=== PATIENT | male | born 1970 | race American Indian/Alaskan Native ===

== ENCOUNTER 2017-05-27 15:28 | Inpatient (IN) | payer OTHER ==
[2017-05-27 15:58] LABS: Basophils % (Auto) 0.5 % (0.0-1.8); Eosinophils % (Auto) 0.1 % (0.0-4.3); Hematocrit 43.1 % (35.5-45.6); Hemoglobin 13.5 gm/dl (11.8-15.2); Mean Corpuscular HGB Conc 32 % (32-34); Mean Corpuscular Hemoglobin 27 pg (28-32); Mean Corpuscular Volume 85 fl (84-94); Platelet Count 440 K/mm3 (140-440); Red Blood Count 5.04 M/mm3 (3.65-5.03); Red Cell Distribution Width 13.3 % (13.2-15.2); White Blood Count 15.3 K/mm3 (4.5-11.0)
[2017-05-27 16:15] LABS: Alanine Aminotransferase 22 units/L (7-56); Albumin 4.3 g/dL (3.9-5); Albumin/Globulin Ratio 1.1 %; Alkaline Phosphatase 98 units/L (35-129); Anion Gap 19 mmol/L; BUN/Creatinine Ratio 10; Blood Urea Nitrogen 10 mg/dL (9-20); Calcium 9.5 mg/dL (8.4-10.2); Carbon Dioxide 24 mmol/L (22-30); Chloride 99.4 mmol/L (98-107); Glucose 106 mg/dL (75-100); Lipase 19 units/L (13-60); Potassium 4.2 mmol/L (3.6-5.0); Sodium 138 mmol/L (137-145); Total Protein 8.2 g/dL (6.3-8.2)
[2017-05-27 17:16] LABS: Bilirubin,Urine NEG (Negative); Blood,Urine NEG (Negative); Ketones,Urine NEG (Negative); Leukocyte Esterase,Urine NEG (Negative); Mucus,Urine FEW /HPF; Nitrite,Urine NEG (Negative); Protein,Urine <15 mg/dL mg/dL (Negative); Urobilinogen,Urine < 2.0 mg/dL (<2.0)
--- NOTE | 2017-05-27 20:34 | Emergency Department Report ---
HPI - General Chief Complaint: Abdominal Pain Time Seen by Provider: 05/27/17 20:33 - HPI HPI: This is a 47-year-old male who presents to the emergency department with mid to lower abdominal pain has been going on since this morning. It is associated with nausea and vomiting the patient says he is unable to even keep liquids down. He took some Pepto-Bismol for his symptoms without much relief. He denies any fever, problems with bowel or bladder, back pain, dysuria. He denies any past medical history. He does not have a primary care physician. No recent travel or sick contacts at home. ED Past Medical Hx - Past Medical History Previous Medical History?: No - Surgical History Past Surgical History?: No - Social History Smoking Status: Never Smoker Substance Use Type: None - Medications Home Medications: Home Medications Medication Instructions Recorded Confirmed Last Taken Type No Known Home Medications [No 05/27/17 05/27/17 Unknown History Reported Home Medications] ED Review of Systems ROS: Stated complaint: ABDOMINAL PAIN Other details as noted in HPI Comment: All other systems reviewed and negative Constitutional: denies: chills, fever Eyes: denies: eye pain, eye discharge, vision change ENT: denies: ear pain, throat pain Respiratory: denies: cough, shortness of breath, wheezing Cardiovascular: denies: chest pain, palpitations Gastrointestinal: abdominal pain, nausea, vomiting. denies: diarrhea Genitourinary: denies: urgency, dysuria Musculoskeletal: denies: back pain, joint swelling, arthralgia Skin: denies: rash, lesions Neurological: denies: headache, weakness, paresthesias Physical Exam - Physical Exam Vital Signs: Vital Signs 05/27/17 05/27/17 15:32 20:07 Temperature 99.1 F 98.2 F Pulse Rate 99 H 97 H Respiratory 18 18 Rate Blood Pressure 151/92 Blood Pressure 165/82 [Left] O2 Sat by Pulse 98 100 Oximetry Physical Exam: GENERAL: The patient is well-developed well-nourished. HENT: Normocephalic. Atraumatic. Patient has moist mucous membranes. EYES: Extraocular motions are intact. Pupils equal reactive to light bilaterally. NECK: Supple. Trachea is midline. CHEST/LUNGS: Clear to auscultation. There is no respiratory distress noted. HEART/CARDIOVASCULAR: Regular. There is no tachycardia. There is no murmur. ABDOMEN: Abdomen is soft. There is some tenderness palpation to the majority of the abdomen except for the right upper quadrant. No guarding or rebound tenderness. Patient has normal bowel sounds. There is no abdominal distention. SKIN: Skin is warm and dry. NEURO: The patient is awake, alert, and oriented. The patient is cooperative. The patient has no focal neurologic deficits. The patient has normal speech. MUSCULOSKELETAL: There is no tenderness or deformity. There is no limitation range of motion. There is no evidence of acute injury. ED Course Vital Signs 05/27/17 05/27/17 15:32 20:07 Temperature 99.1 F 98.2 F Pulse Rate 99 H 97 H Respiratory 18 18 Rate Blood Pressure 151/92 Blood Pressure 165/82 [Left] O2 Sat by Pulse 98 100 Oximetry - Consultations Consultation #1: 05/27/17 23:51 I spoke with the general surgeon [employer] support association, Dr Banerjee, listen to the presentation and the CT scan results showing the 4 small masses within the abdomen and he recommends admission to the hospitalist service and he will consult on the floor. ED Medical Decision Making - Lab Data Result diagrams: 05/27/17 15:41 05/27/17 15:41 - Radiology Data Radiology results: report reviewed PROCEDURE: CT abdomen and pelvis with contrast. TECHNIQUE: Computerized axial tomography of the abdomen and pelvis was performed after the IV injection of iodinated nonionic contrast. HISTORY: Abdominal pain. COMPARISON: No prior studies are available for comparison. FINDINGS: The lung bases are clear. There are no pleural effusions. The heart size is normal. The liver, spleen and pancreas appear normal. The gallbladder is present. The adrenal glands are not enlarged. Both kidneys appear normal in size and configuration. There is a small right renal cyst. The abdominal aorta has a normal caliber. There is no retroperitoneal adenopathy. The gastrointestinal tract is unremarkable. There are no signs of intestinal obstruction. A normal appendix is visible. There are 4 rounded masses located within the mesenteric fat of the right mid abdomen. These are located between the inferior vena cava and the ascending portion of the colon. They do not appear to be contiguous with any bowel loops. The 4 masses are clustered in one area. All of the masses appear to be solid. The largest mass is slightly lobulated and measures 4.4 centimeters x 3.6 centimeters in cross-section. The smallest mass measures approximately 2.0 centimeters x 1.6 centimeters in cross-section. The margins of the masses are sharply defined. The etiology is uncertain. This could represent lymphoma. A lower grade sarcoma is possible. Metastases to the mesentery are possible. A CT-guided biopsy may be possible. Referral to a general surgeon should be considered. The bladder, seminal vesicles and prostate appear normal. The regional skeleton appears intact. IMPRESSION: Unusual solid masses within the right-sided mesenteric fat as discussed above. Tiny right renal cyst. Transcribed By: MRM Dictated By: INDIA BARRETT MD Electronically Authenticated By: INDIA BARRETT MD Signed Date/Time: 05/27/171935 - Medical Decision Making Patient presents with abdominal pain, nausea and vomiting. Labs are mostly unremarkable except for a leukocytosis of 15,000. Normal belly labs. CT of the abdomen and pelvis was done that shows 4 right-sided mesenteric masses between 4 and 2 cm that could be lymphoma versus sarcoma versus metastasis. Spoke with general surgery who recommended admission where he will consult. Patient was given IV fluid, pain medication and antiemetics. He has been accepted for admission by the hospitalist, Dr Cervantes. - Differential Diagnosis Appendicitis, Malignancy, Diverticulitis, Pancreatitis Critical Care Time: No Critical care attestation.: If time is entered above; I have spent that time in minutes in the direct care of this critically ill patient, excluding procedure time. ED Disposition Clinical Impression: Mesenteric mass Abdominal pain Qualifiers: Abdominal location: generalized Qualified Code(s): R10.84 - Generalized abdominal pain Nausea and vomiting Qualifiers: Vomiting type: unspecified Vomiting Intractability: non-intractable Qualified Code(s): R11.2 - Nausea with vomiting, unspecified Abdominal mass Qualifiers: Abdominal location: unspecified location Qualified Code(s): R19.00 - Intra- abdominal and pelvic swelling, mass and lump, unspecified site Disposition: OP ADMIT IP TO THIS HOSP Is pt being admited?: Yes Condition: Stable Referrals: PRIMARY CARE, [Primary Care Provider] - 3-5 Days Time of Disposition: 00:09
[2017-05-27] MEDS ORDERED: MORPHINE IV ONE (21:41)
[2017-05-27] MEDS ORDERED: ZOFRAN IV ONE (21:41)
[2017-05-27] MEDS ORDERED: NACL ONE (21:47)
--- NOTE | 2017-05-27 23:39 | Cat Scan Report ---
FINAL REPORT PROCEDURE: CT abdomen and pelvis with contrast. TECHNIQUE: Computerized axial tomography of the abdomen and pelvis was performed after the IV injection of iodinated nonionic contrast. HISTORY: Abdominal pain. COMPARISON: No prior studies are available for comparison. FINDINGS: The lung bases are clear. There are no pleural effusions. The heart size is normal. The liver, spleen and pancreas appear normal. The gallbladder is present. The adrenal glands are not enlarged. Both kidneys appear normal in size and configuration. There is a small right renal cyst. The abdominal aorta has a normal caliber. There is no retroperitoneal adenopathy. The gastrointestinal tract is unremarkable. There are no signs of intestinal obstruction. A normal appendix is visible. There are 4 rounded masses located within the mesenteric fat of the right mid abdomen. These are located between the inferior vena cava and the ascending portion of the colon. They do not appear to be contiguous with any bowel loops. The 4 masses are clustered in one area. All of the masses appear to be solid. The largest mass is slightly lobulated and measures 4.4 centimeters x 3.6 centimeters in cross-section. The smallest mass measures approximately 2.0 centimeters x 1.6 centimeters in cross-section. The margins of the masses are sharply defined. The etiology is uncertain. This could represent lymphoma. A lower grade sarcoma is possible. Metastases to the mesentery are possible. A CT-guided biopsy may be possible. Referral to a general surgeon should be considered. The bladder, seminal vesicles and prostate appear normal. The regional skeleton appears intact. IMPRESSION: Unusual solid masses within the right-sided mesenteric fat as discussed above. Tiny right renal cyst.
[2017-05-27] MEDS ORDERED: NACL 0.9% 1000 ML 1,000 ML IV ONE (23:42)
[2017-05-28] MEDS ORDERED: TYLENOL PO PRN (00:38)
[2017-05-28] MEDS ORDERED: MILK OF MAGNESIA PO PRN (00:38)
[2017-05-28] MEDS ORDERED: ZOFRAN IV PRN (00:38)
[2017-05-28] MEDS ORDERED: DULCOLAX PR PRN (00:38)
--- NOTE | 2017-05-28 00:38 | History and Physical Report ---
History of Present Illness Date of examination: 05/28/17 Date of admission: 05/28/17 Chief complaint: abd pain History of present illness: This is a 47-year-old male with no significant past medical history who presents to the emergency department with complaints of abdominal pain and persistent nausea and vomiting. He is unable to even keep liquids down. He took some Pepto-Bismol for his symptoms without much relief. He denies any fever, problems with bowel or bladder, back pain or dysuria. Patient states that his vomitus is of gastric contents. He denies any hematemesis. No chills. No cough, cold like symptoms. Patient states that his pain has been relieved with morphine given in the ER. Past History Past Medical History: No medical history Past Surgical History: No surgical history Social history: no significant social history Family history: cancer (father prostate), hypertension (mother) Medications and Allergies Allergies Allergy/AdvReac Type Severity Reaction Status Date / Time No Known Allergies Allergy Unverified 05/27/17 15:29 Home Medications Medication Instructions Recorded Confirmed Last Taken Type No Known Home Medications [No 05/27/17 05/27/17 Unknown History Reported Home Medications] Active Meds: Active Medications Sodium Chloride (Nacl 0.9% 1000 Ml) 1,000 mls @ 999 mls/hr IV BOLUS ONE Stop: 05/28/17 00:42 Last Admin: 05/27/17 23:51 Dose: 999 mls/hr Review of Systems All systems: negative Exam - Constitutional Vitals: Temp Pulse Resp BP Pulse Ox 98.2 F 108 H 23 139/82 98 05/27/17 20:07 05/27/17 23:00 05/27/17 23:00 05/27/17 23:00 05/27/17 23:00 General appearance: Present: no acute distress, well-nourished - EENT Eyes: Present: PERRL ENT: hearing intact, clear oral mucosa - Neck Neck: Present: supple, normal ROM - Respiratory Respiratory effort: normal Respiratory: bilateral: CTA - Cardiovascular Heart Sounds: Present: S1 & S2. Absent: rub, click - Extremities Extremities: pulses symmetrical, No edema Peripheral Pulses: within normal limits - Abdominal General gastrointestinal: Present: soft, non-tender, non-distended, normal bowel sounds Male genitourinary: Present: normal - Integumentary Integumentary: Present: clear, warm, dry - Musculoskeletal Musculoskeletal: gait normal, strength equal bilaterally - Psychiatric Psychiatric: appropriate mood/affect, intact judgment & insight - Neurologic Neurologic: CNII-XII intact, moves all extremities Results - Labs CBC & Chem 7: 05/27/17 15:41 05/27/17 15:41 Labs: Laboratory Last Values WBC 15.3 K/mm3 (4.5-11.0) H 05/27/17 15:41 RBC 5.04 M/mm3 (3.65-5.03) H 05/27/17 15:41 Hgb 13.5 gm/dl (11.8-15.2) 05/27/17 15:41 Hct 43.1 % (35.5-45.6) 05/27/17 15:41 MCV 85 fl (84-94) 05/27/17 15:41 MCH 27 pg (28-32) L 05/27/17 15:41 MCHC 32 % (32-34) 05/27/17 15:41 RDW 13.3 % (13.2-15.2) 05/27/17 15:41 Plt Count 440 K/mm3 (140-440) 05/27/17 15:41 Lymph % (Auto) 14.8 % (13.4-35.0) 05/27/17 15:41 [place] % (Auto) 2.3 % (0.0-7.3) 05/27/17 15:41 Eos % (Auto) 0.1 % (0.0-4.3) 05/27/17 15:41 Baso % (Auto) 0.5 % (0.0-1.8) 05/27/17 15:41 Lymph # 2.3 K/mm3 (1.2-5.4) 05/27/17 15:41 [place] # 0.3 K/mm3 (0.0-0.8) 05/27/17 15:41 Eos # 0.0 K/mm3 (0.0-0.4) 05/27/17 15:41 Baso # 0.1 K/mm3 (0.0-0.1) 05/27/17 15:41 Seg Neutrophils % 82.3 % (40.0-70.0) H 05/27/17 15:41 Seg Neutrophils # 12.6 K/mm3 (1.8-7.7) H 05/27/17 15:41 Sodium 138 mmol/L (137-145) 05/27/17 15:41 Potassium 4.2 mmol/L (3.6-5.0) 05/27/17 15:41 Chloride 99.4 mmol/L (98-107) 05/27/17 15:41 Carbon Dioxide 24 mmol/L (22-30) 05/27/17 15:41 Anion Gap 19 mmol/L 05/27/17 15:41 BUN 10 mg/dL (9-20) 05/27/17 15:41 Creatinine 1.0 mg/dL (0.8-1.5) 05/27/17 15:41 Estimated GFR > 60 ml/min 05/27/17 15:41 BUN/Creatinine Ratio 10 % 05/27/17 15:41 Glucose 106 mg/dL (75-100) H 05/27/17 15:41 Calcium 9.5 mg/dL (8.4-10.2) 05/27/17 15:41 Total Bilirubin 0.30 mg/dL (0.1-1.2) 05/27/17 15:41 AST 15 units/L (5-40) 05/27/17 15:41 ALT 22 units/L (7-56) 05/27/17 15:41 Alkaline Phosphatase 98 units/L (35-129) 05/27/17 15:41 Total Protein 8.2 g/dL (6.3-8.2) 05/27/17 15:41 Albumin 4.3 g/dL (3.9-5) 05/27/17 15:41 Albumin/Globulin Ratio 1.1 % 05/27/17 15:41 Lipase 19 units/L (13-60) 05/27/17 15:41 Urine Color Yellow (Yellow) 05/27/17 15:38 Urine Turbidity Clear (Clear) 05/27/17 15:38 Urine pH 8.0 (5.0-7.0) H 05/27/17 15:38 Ur Specific [place] 1.021 (1.003-1.030) 05/27/17 15:38 Urine Protein <15 mg/dl mg/dL (Negative) 05/27/17 15:38 Urine Glucose (UA) Neg mg/dL (Negative) 05/27/17 15:38 Urine Ketones Neg mg/dL (Negative) 05/27/17 15:38 Urine Blood Neg (Negative) 05/27/17 15:38 Urine Nitrite Neg (Negative) 05/27/17 15:38 Urine Bilirubin Neg (Negative) 05/27/17 15:38 Urine Urobilinogen < 2.0 mg/dL (<2.0) 05/27/17 15:38 Ur Leukocyte Esterase Neg (Negative) 05/27/17 15:38 Urine WBC (Auto) 1.0 /HPF (0.0-6.0) 05/27/17 15:38 Urine RBC (Auto) 2.0 /HPF (0.0-6.0) 05/27/17 15:38 Urine Mucus Few /HPF 05/27/17 15:38 Assessment and Plan Assessment and plan: Abdominal pain/mesenteric mass. CT of the abdomen and pelvis was done that shows 4 right-sided mesenteric masses between 4 and 2 cm that could be lymphoma versus sarcoma versus metastasis. General surgery has been consulted and will follow up in the morning. Persistent nausea and vomiting. Continue supportive care with IV fluid hydration and antiemetics. DVT prophylaxis.
[2017-05-28] MEDS: MORPHINE IV PRN ×3 (02:21→23:45)
[2017-05-28] MEDS: NACL 0.9% 1000 ML 1,000 ML IV SCH ×2 (02:22→14:38)
[2017-05-28] MEDS: PEPCID IV SCH ×2 (09:41→21:52)
[2017-05-28] MEDS: LOVENOX SUB-Q SCH (09:41)
[2017-05-28 10:00] LABS: Basophils % (Auto) 0.5 % (0.0-1.8); Eosinophils % (Auto) 0.2 % (0.0-4.3); Hematocrit 40.1 % (35.5-45.6); Hemoglobin 12.8 gm/dl (11.8-15.2); Mean Corpuscular HGB Conc 32 % (32-34); Mean Corpuscular Hemoglobin 27 pg (28-32); Mean Corpuscular Volume 85 fl (84-94); Platelet Count 391 K/mm3 (140-440); Red Blood Count 4.74 M/mm3 (3.65-5.03); Red Cell Distribution Width 13.1 % (13.2-15.2); White Blood Count 15.6 K/mm3 (4.5-11.0)
--- NOTE | 2017-05-28 11:42 | Progress Note ---
Assessment and Plan Full consult dictated. Healthy 47 y/o male c/o abd pain, N&V for around 2 wks. "feeling better now". also hx of constipation. Abd soft, mild epig tenderness. CT - enlarged (approx 5cm) mesenteric LN. r/o lymphoma. also questionable rectal mass imp - as above keep npo IR eval possible CT guided LN biopsy also GI eval for colonoscopy will follow. Chief complaint: abd pain History of present illness: This is a 47-year-old male with no significant past medical history who presents to the emergency department with complaints of abdominal pain and persistent nausea and vomiting. He is unable to even keep liquids down. He took some Pepto-Bismol for his symptoms without much relief. He denies any fever, problems with bowel or bladder, back pain or dysuria. Patient states that his vomitus is of gastric contents. He denies any hematemesis. No chills. No cough, cold like symptoms. Patient states that his pain has been relieved with morphine given in the ER. Past History Past Medical History: No medical history Past Surgical History: No surgical history Social history: no significant social history Family history: cancer (father prostate), hypertension (mother) Selected Entries 05/28/17 08:00 Temperature 97.0 F L Pulse Rate 98 H Respiratory 20 Rate Blood Pressure 146/87 Laboratory Tests 05/27/17 05/28/17 15:41 09:39 WBC 15.6 H Hgb 12.8 Hct 40.1 Sodium 138 Potassium 4.2 Chloride 99.4 Carbon Dioxide 24 Anion Gap 19 BUN 10 Creatinine 1.0 Total Bilirubin 0.30 AST 15 ALT 22 Alkaline Phosphatase 98 Lipase 19 Objective Vital Signs - 12hr 05/27/17 05/28/17 05/28/17 23:53 00:00 00:11 Temperature Pulse Rate 104 H 112 H 107 H Respiratory 19 19 13 Rate Blood Pressure 139/82 146/96 146/96 Blood Pressure [Left] O2 Sat by Pulse 98 100 99 Oximetry 05/28/17 05/28/17 05/28/17 00:21 00:31 00:41 Temperature Pulse Rate 111 H 108 H 105 H Respiratory 19 18 22 Rate Blood Pressure 146/96 146/96 146/96 Blood Pressure [Left] O2 Sat by Pulse 98 97 96 Oximetry 05/28/17 05/28/17 05/28/17 00:51 01:00 01:11 Temperature Pulse Rate 109 H 105 H 109 H Respiratory 21 21 21 Rate Blood Pressure 146/96 155/80 155/80 Blood Pressure [Left] O2 Sat by Pulse 97 100 97 Oximetry 05/28/17 05/28/17 05/28/17 01:12 01:41 02:21 Temperature 98.8 F 98.5 F Pulse Rate 114 H 107 H Respiratory 20 20 24 Rate Blood Pressure 151/82 Blood Pressure 155/80 [Left] O2 Sat by Pulse 98 100 Oximetry 05/28/17 05/28/17 03:19 08:00 Temperature 97.0 F L Pulse Rate 98 H Respiratory 20 20 Rate Blood Pressure 146/87 Blood Pressure [Left] O2 Sat by Pulse 98 Oximetry - Labs 05/28/17 09:39 05/27/17 15:41 Diabetes panel 05/27/17 Range/Units 15:41 Sodium 138 (137-145) mmol/L Potassium 4.2 (3.6-5.0) mmol/L Chloride 99.4 (98-107) mmol/L Carbon Dioxide 24 (22-30) mmol/L BUN 10 (9-20) mg/dL Creatinine 1.0 (0.8-1.5) mg/dL Glucose 106 H (75-100) mg/dL Calcium 9.5 (8.4-10.2) mg/dL AST 15 (5-40) units/L ALT 22 (7-56) units/L Alkaline Phosphatase 98 (35-129) units/L Total Protein 8.2 (6.3-8.2) g/dL Albumin 4.3 (3.9-5) g/dL Calcium panel 05/27/17 Range/Units 15:41 Calcium 9.5 (8.4-10.2) mg/dL Albumin 4.3 (3.9-5) g/dL Pituitary panel 05/27/17 Range/Units 15:41 Sodium 138 (137-145) mmol/L Potassium 4.2 (3.6-5.0) mmol/L Chloride 99.4 (98-107) mmol/L Carbon Dioxide 24 (22-30) mmol/L BUN 10 (9-20) mg/dL Creatinine 1.0 (0.8-1.5) mg/dL Glucose 106 H (75-100) mg/dL Calcium 9.5 (8.4-10.2) mg/dL Adrenal panel 05/27/ Range/Units 15:41 Sodium 138 (137-145) mmol/L Potassium 4.2 (3.6-5.0) mmol/L Chloride 99.4 (98-107) mmol/L Carbon Dioxide 24 (22-30) mmol/L BUN 10 (9-20) mg/dL Creatinine 1.0 (0.8-1.5) mg/dL Glucose 106 H (75-100) mg/dL Calcium 9.5 (8.4-10.2) mg/dL Total Bilirubin 0.30 (0.1-1.2) mg/dL AST 15 (5-40) units/L ALT 22 (7-56) units/L Alkaline Phosphatase 98 (35-129) units/L Total Protein 8.2 (6.3-8.2) g/dL Albumin 4.3 (3.9-5) g/dL
--- NOTE | 2017-05-28 15:24 | Gastroenterology Consultation ---
History of Present Illness - Reason for Consult Consult date: 05/28/17 rule out colo-rectal mass Requesting physician: YESY WHITE - History of Present Illness Mr Mejia is a 47 yo aam with no significant past medical history who presents with abdominal pain. patient reports having changes in GI symptoms starting ~6- 8 weeks ago. he initially was having sporadic abdominal pain (mid/right sided) which were self-limiting without obvious triggers or alleviating factors. The pain became more frequent and severe which led to ED arrival yesterday. He has had poor po intake over the last few weeks with episodes of abd pain and occasional n/v following po intake. He also reports bowel habit changes ( constipation) since abd pain started. Denies overt gi bleeding or obvious weight loss. CT scan findings reviewed which shows solid masses in right mesentery of unclear etiology. + night sweats/chills. No known family h/o colon cancer. Past History Past Medical History: No medical history Past Surgical History: No surgical history Social history: no significant social history Family history: cancer (father prostate), hypertension (mother) Medications and Allergies Allergies Allergy/AdvReac Type Severity Reaction Status Date / Time No Known Allergies Allergy Unverified 05/27/17 15:29 Home Medications Medication Instructions Recorded Confirmed Last Taken Type No Known Home Medications [No 05/27/17 05/27/17 Unknown History Reported Home Medications] Active Meds: Active Medications Acetaminophen (Tylenol) 650 mg PO Q4H PRN PRN Reason: Pain MILD(1-3)/Fever >100.5/LADD Bisacodyl (Dulcolax) 10 mg NM QDAY PRN PRN Reason: Constipation unrelieved by MOM Bisacodyl (Dulcolax) 15 mg PO ONCE ONE Stop: 05/28/17 16:01 Enoxaparin Sodium (Lovenox) 40 mg SUB-Q QDAY [facility] Last Admin: 05/28/17 09:41 Dose: 40 mg Famotidine (Pepcid) 20 mg IV BID [facility] Last Admin: 05/28/17 09:41 Dose: 20 mg Sodium Chloride (Nacl 0.9% 1000 Ml) 1,000 mls @ 75 mls/hr IV DIRECT [facility] Last Admin: 05/28/17 14:38 Dose: 75 mls/hr Magnesium Hydroxide (Milk Of Magnesia) 30 ml PO Q4H PRN PRN Reason: Constipation Morphine Sulfate (Morphine) 2 mg IV Q4H PRN PRN Reason: Pain, Moderate (4-6) Last Admin: 05/28/17 12:44 Dose: 2 mg Ondansetron HCl (Zofran) 4 mg IV Q8H PRN PRN Reason: N/V unrelieved by Reglan Polyethylene Glycol/Electrolytes (Golytely) 4,000 ml PO ONCE ONE Stop: 05/28/17 17:01 Review of Systems - Review of Systems All systems: negative (per hpi) Exam - Constitutional Vital Signs: Temp Pulse Resp BP Pulse Ox 97.0 F L 98 H 20 146/87 98 05/28/17 08:00 05/28/17 08:00 05/28/17 13:14 05/28/17 08:00 05/28/17 08:00 General appearance: no acute distress - EENT Eyes: PERRL, EOM intact ENT: clear oral mucosa - Neck Neck: supple, normal ROM - Respiratory Respiratory effort: normal Respiratory: bilateral: CTA - Cardiovascular Rhythm: regular Heart Sounds: Present: S1 & S2 Extremities: No edema - Gastrointestinal General gastrointestinal: Present: soft, non-distended, normal bowel sounds - Integumentary Integumentary: Present: warm, dry - Neurologic Neurological: alert and oriented x3 - Psychiatric Psychiatric: appropriate mood/affect - Labs CBC & Chem 7: 05/28/17 09:39 05/27/17 15:41 Lab Results: Laboratory Results - last 24 hr 05/27/17 05/27/17 05/27/17 15:38 15:41 15:41 WBC 15.3 H RBC 5.04 H Hgb 13.5 Hct 43.1 MCV 85 MCH 27 L MCHC 32 RDW 13.3 Plt Count 440 Lymph % (Auto) 14.8 [place] % (Auto) 2.3 Eos % (Auto) 0.1 Baso % (Auto) 0.5 Lymph # 2.3 [place] # 0.3 Eos # 0.0 Baso # 0.1 Seg Neutrophils % 82.3 H Seg Neutrophils # 12.6 H Sodium 138 Potassium 4.2 Chloride 99.4 Carbon Dioxide 24 Anion Gap 19 BUN 10 Creatinine 1.0 Estimated GFR > 60 BUN/Creatinine Ratio 10 Glucose 106 H Calcium 9.5 Total Bilirubin 0.30 AST 15 ALT 22 Alkaline Phosphatase 98 Total Protein 8.2 Albumin 4.3 Albumin/Globulin Ratio 1.1 Lipase 19 Urine Color Yellow Urine Turbidity Clear Urine pH 8.0 H Ur Specific [place] 1.021 Urine Protein <15 mg/dl Urine Glucose (UA) Neg Urine Ketones Neg Urine Blood Neg Urine Nitrite Neg Urine Bilirubin Neg Urine Urobilinogen < 2.0 Ur Leukocyte Esterase Neg Urine WBC (Auto) 1.0 Urine RBC (Auto) 2.0 Urine Mucus Few 05/28/17 09:39 WBC 15.6 H RBC 4.74 Hgb 12.8 Hct 40.1 MCV 85 MCH 27 L MCHC 32 RDW 13.1 L Plt Count 391 Lymph % (Auto) 16.6 [place] % (Auto) 7.7 H Eos % (Auto) 0.2 Baso % (Auto) 0.5 Lymph # 2.6 [place] # 1.2 H Eos # 0.0 Baso # 0.1 Seg Neutrophils % 75.0 H Seg Neutrophils # 11.7 H Sodium Potassium Chloride Carbon Dioxide Anion Gap BUN Creatinine Estimated GFR BUN/Creatinine Ratio Glucose Calcium Total Bilirubin AST ALT Alkaline Phosphatase Total Protein Albumin Albumin/Globulin Ratio Lipase Urine Color Urine Turbidity Urine pH Ur Specific [place] Urine Protein Urine Glucose (UA) Urine Ketones Urine Blood Urine Nitrite Urine Bilirubin Urine Urobilinogen Ur Leukocyte Esterase Urine WBC (Auto) Urine RBC (Auto) Urine Mucus - Imaging CT Scan: report reviewed Assessment and Plan 1. Mesentery masses of unclear etiology 2. Abdominal pain/change in bowel habits 3. Intractable nausea/vomiting -presentation and imaging concerning for possible underlying neoplasm. he has had bowel habit changes since initiation of abd pain/symptoms. surgery following, percutaneous biopsy being considered/pending. -will plan for colonoscopy and EGD tomorrow to r/o possible GI source of malignancy
[2017-05-28] MEDS ORDERED: DULCOLAX PO ONE (16:00)
[2017-05-28] MEDS ORDERED: GOLYTELY PO ONE (17:00)
--- NOTE | 2017-05-28 18:30 | Event Note ---
Date: 05/28/17 Patient was seen and evaluated this morning, abdominal pain subsided, evaluated by GI and surgery. Continue management per H&P.
--- NOTE | 2017-05-28 23:40 | Consultation ---
REASON FOR CONSULTATION: Abdominal pain accompanied by nausea and vomiting. HISTORY OF PRESENT ILLNESS: CT findings show enlarged mesenteric and possible retroperitoneal lymph nodes. Rule out lymphoma. The patient is a pleasant and healthy 47-year-old male who is admitted to the hospital at this time with a chief complaint of abdominal pain accompanied by nausea and vomiting for " He states that he " Also, he has a history of constipation. PAST MEDICAL HISTORY: Essentially negative. PAST SURGICAL HISTORY: Negative. ALLERGIES: No known allergies. MEDICATIONS: No medications. FAMILY HISTORY: Hypertension and father of prostate cancer. SOCIAL HISTORY: Denies any smoking or drinking. REVIEW OF SYSTEMS: Noncontributory other than the constipation. PHYSICAL EXAMINATION: GENERAL: At this time reveals the patient to be awake, alert, cooperative, in good spirits, in no acute distress. VITAL SIGNS: Temperature is 97, blood pressure 146/87, pulse of 98, respirations of 20. ABDOMEN: Examination of the abdomen revealed him to be moderately obese and soft. There is mild epigastric tenderness noted, but otherwise unremarkable. Bowel sounds are present. LABORATORY DATA: Lab work at present includes a CBC, which shows a white count of 15.6, H and H is 12.8 and 40.1. Platelet count normal at 391. Electrolytes are all within normal limits. LFTs are also normal including a total bilirubin of 0.3, AST is 15, ALT 22, alkaline phosphatase is 98, lipase is 19. CT scan of the abdomen has been performed, which I have reviewed with Dr. Gant. Again, enlarged lymph nodes are noted within the mesentery and possible retroperitoneum. There is a very large node measuring approximately 5 cm. The bowel itself is not dilated or obstructed. Also, in mentioning, Dr. Gant sees questionable rectal mass that this is not mentioned in the original report. Dr. Gant does not want to place an addendum at this time because he states he did not read the original report, but he has mentioned it to me verbally. IMPRESSION: At this time is that of a 47-year-old gentleman with: 1. Recent onset of abdominal pain, nausea and vomiting. Also, history of constipation. 2. Lymphadenopathy noted on CT and questionable rectal mass. 3. Rule out lymphoma. 4. Rule out rectal tumor. RECOMMENDATIONS: Keep the patient n.p.o. at this time except for ice chips and meds. We will consult Interventional Radiology and see if we can perform CT-guided lymph node biopsy of mesenteric nodes. Also, we will obtain GI evaluation for colonoscopy to further delineate this questionable rectal mass. Also, rule out metastatic disease from a rectal mass. We will follow closely with you. Thank you very much for consultation. JOB# [id number] FP/NTS
[2017-05-29] MEDS: NACL 0.9% 1000 ML 1,000 ML IV SCH (04:42)
[2017-05-29 07:22] LABS: Basophils % (Auto) 0.4 % (0.0-1.8); Hematocrit 38.9 % (35.5-45.6); Hemoglobin 12.7 gm/dl (11.8-15.2); Mean Corpuscular HGB Conc 33 % (32-34); Mean Corpuscular Hemoglobin 28 pg (28-32); Mean Corpuscular Volume 86 fl (84-94); Platelet Count 387 K/mm3 (140-440); Red Blood Count 4.53 M/mm3 (3.65-5.03); Red Cell Distribution Width 13.4 % (13.2-15.2)
[2017-05-29 07:26] LABS: Anion Gap 20 mmol/L; BUN/Creatinine Ratio 9; Blood Urea Nitrogen 9 mg/dL (9-20); Calcium 8.8 mg/dL (8.4-10.2); Carbon Dioxide 23 mmol/L (22-30); Chloride 102.3 mmol/L (98-107); Glucose 107 mg/dL (75-100); Sodium 141 mmol/L (137-145)
--- NOTE | 2017-05-29 09:18 | Consultation ---
History of Present Illness - Reason for Consult Consult date: 05/29/17 - History of Present Illness With a history of approximately 6 weeks of progressive abdominal pain that he describes is bandlike across the lower abdomen. He presented Monday and a CT scan was performed which demonstrates multiple para-aortic discrete masses in his lower right abdomen. Patient has no history of cancer. His testicular exam is normal. No other history of cancer. Past History Past Medical History: No medical history Past Surgical History: No surgical history Social history: no significant social history Family history: cancer (father prostate), hypertension (mother) Medications and Allergies Allergies Allergy/AdvReac Type Severity Reaction Status Date / Time No Known Allergies Allergy Unverified 05/27/17 15:29 Home Medications Medication Instructions Recorded Confirmed Last Taken Type No Known Home Medications [No 05/27/17 05/27/17 Unknown History Reported Home Medications] Active Meds: Active Medications Acetaminophen (Tylenol) 650 mg PO Q4H PRN PRN Reason: Pain MILD(1-3)/Fever >100.5/LADD Bisacodyl (Dulcolax) 10 mg NE QDAY PRN PRN Reason: Constipation unrelieved by MOM Enoxaparin Sodium (Lovenox) 40 mg SUB-Q QDAY [facility] Last Admin: 05/28/17 09:41 Dose: 40 mg Famotidine (Pepcid) 20 mg IV BID [facility] Last Admin: 05/28/17 21:52 Dose: 20 mg Sodium Chloride (Nacl 0.9% 1000 Ml) 1,000 mls @ 75 mls/hr IV DIRECT [facility] Last Admin: 05/29/17 04:42 Dose: 75 mls/hr Magnesium Hydroxide (Milk Of Magnesia) 30 ml PO Q4H PRN PRN Reason: Constipation Morphine Sulfate (Morphine) 2 mg IV Q4H PRN PRN Reason: Pain, Moderate (4-6) Last Admin: 05/28/17 23:45 Dose: 2 mg Ondansetron HCl (Zofran) 4 mg IV Q8H PRN PRN Reason: N/V unrelieved by Reglan Last Admin: 05/28/17 23:48 Dose: 4 mg Review of Systems All systems: negative Exam - Constitutional Vitals: Temp Pulse Resp BP Pulse Ox 98.0 F 92 H 18 143/91 96 05/29/17 07:37 05/29/17 07:37 05/29/17 07:37 05/29/17 07:37 05/29/17 07:37 General appearance: Present: no acute distress - EENT Eyes: Present: PERRL ENT: hearing intact - Neck Neck: Present: supple, normal ROM - Respiratory Respiratory effort: normal - Extremities Extremities: no ischemia - Abdominal General gastrointestinal: Present: non-tender, non-distended Male genitourinary: Present: normal - Rectal Rectal Exam: deferred - Psychiatric Psychiatric: appropriate mood/affect, cooperative - Neurologic Neurologic: CNII-XII intact Results - Labs CBC & Chem 7: 05/29/17 06:14 05/29/17 06:14 Labs: Abnormal lab results 05/28/17 05/29/17 05/29/17 Range/Units 09:39 06:14 06:14 WBC 15.6 H 16.0 H (4.5-11.0) K/mm3 MCH 27 L (28-32) pg RDW 13.1 L (13.2-15.2) % [place] % (Auto) 7.7 H 9.5 H (0.0-7.3) % [place] # 1.2 H 1.5 H (0.0-0.8) K/mm3 Seg Neutrophils % 75.0 H 73.5 H (40.0-70.0) % Seg Neutrophils # 11.7 H 11.8 H (1.8-7.7) K/mm3 Glucose 107 H (75-100) mg/dL - Imaging and Cardiology CT scan - abdomen: report reviewed, image reviewed Assessment and Plan Patient with a history of abdominal pain and right lower quadrant masses. He is undergoing EGD/colonoscopy today. He'll be scheduled for CT-guided biopsy of these masses tomorrow.
[2017-05-29] MEDS: LOVENOX SUB-Q SCH (09:47)
[2017-05-29] MEDS: PEPCID IV SCH ×2 (09:48→22:09)
--- NOTE | 2017-05-29 12:13 | Progress Note ---
Assessment and Plan pt status quo. no compl IR & GI evals appreciated for endoscopy & needle loc biopsy tomorrow Selected Entries 05/29/17 07:37 Temperature 98.0 F Pulse Rate 92 H Respiratory 18 Rate Blood Pressure 143/91 Laboratory Tests 05/29/17 06:14 WBC 16.0 H Hgb 12.7 Hct 38.9 Objective Vital Signs - 12hr 05/29/17 07:37 Temperature 98.0 F Pulse Rate 92 H Respiratory 18 Rate Blood Pressure 143/91 O2 Sat by Pulse 96 Oximetry - Labs 05/29/17 06:14 05/29/17 06:14 Diabetes panel 05/29/17 Range/Units 06:14 Sodium 141 (137-145) mmol/L Potassium 4.0 (3.6-5.0) mmol/L Chloride 102.3 (98-107) mmol/L Carbon Dioxide 23 (22-30) mmol/L BUN 9 (9-20) mg/dL Creatinine 1.0 (0.8-1.5) mg/dL Glucose 107 H (75-100) mg/dL Calcium 8.8 (8.4-10.2) mg/dL Calcium panel 05/29/17 Range/Units 06:14 Calcium 8.8 (8.4-10.2) mg/dL Pituitary panel 05/29/17 Range/Units 06:14 Sodium 141 (137-145) mmol/L Potassium 4.0 (3.6-5.0) mmol/L Chloride 102.3 (98-107) mmol/L Carbon Dioxide 23 (22-30) mmol/L BUN 9 (9-20) mg/dL Creatinine 1.0 (0.8-1.5) mg/dL Glucose 107 H (75-100) mg/dL Calcium 8.8 (8.4-10.2) mg/dL Adrenal panel 05/29/17 Range/Units 06:14 Sodium 141 (137-145) mmol/L Potassium 4.0 (3.6-5.0) mmol/L Chloride 102.3 (98-107) mmol/L Carbon Dioxide 23 (22-30) mmol/L BUN 9 (9-20) mg/dL Creatinine 1.0 (0.8-1.5) mg/dL Glucose 107 H (75-100) mg/dL Calcium 8.8 (8.4-10.2) mg/dL
[2017-05-29] MEDS: MORPHINE IV PRN (12:49)
--- NOTE | 2017-05-29 13:41 | Event Note ---
Date: 05/29/17 We'll plan on doing patient's biopsy on Monday. The patient was incompletely cleaned out for his EGD and colonoscopy today and this will be performed tomorrow with his biopsy to follow on Monday.
--- NOTE | 2017-05-29 14:14 | Progress Note ---
Assessment and Plan Assessment and plan: Chronic abdominal pain Abdominal mass - Patient is going to have EGD and colonoscopy tomorrow - The plan is to do today but was poor bowel prep - Patient is going to have CT-guided biopsy on Monday DVT prophylaxis - SCDs because he is going to CT guided biopsy Disposition - Continue inpatient care until we finish the workup History Interval history: Patient was seen and evaluated this morning, he was complaining of nausea and vomiting overnight. He couldn't finish the [place]. Hospitalist Physical - Physical exam Narrative exam: Not in cardiopulmonary distress. The patient obese. Vital signs as documented. Head exam is unremarkable. No scleral icterus . Neck is without jugular venous distension, thyromegaly, or carotid bruits. Lungs are clear to auscultation. Cardiac exam reveals regular rate and Rhythm. First and second heart sounds normal. No murmurs, rubs or gallops. Abdominal exam reveals normal bowel sounds, no masses, no organomegaly and no aortic enlargement. Extremities are nonedematous and both femoral and pedal pulses are normal. 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 No focal weakness. - Constitutional Vitals: Temp Pulse Resp BP Pulse Ox 98.0 F 92 H 18 143/91 96 05/29/17 07:37 05/29/17 07:37 05/29/17 07:37 05/29/17 07:37 05/29/17 07:37 General appearance: Present: no acute distress Results - Labs CBC & Chem 7: 05/29/17 06:14 05/29/17 06:14 Labs: Laboratory Last Values WBC 16.0 K/mm3 (4.5-11.0) H 05/29/17 06:14 RBC 4.53 M/mm3 (3.65-5.03) 05/29/17 06:14 Hgb 12.7 gm/dl (11.8-15.2) 05/29/17 06:14 Hct 38.9 % (35.5-45.6) 05/29/17 06:14 MCV 86 fl (84-94) 05/29/17 06:14 MCH 28 pg (28-32) 05/29/17 06:14 MCHC 33 % (32-34) 05/29/17 06:14 RDW 13.4 % (13.2-15.2) 05/29/17 06:14 Plt Count 387 K/mm3 (140-440) 05/29/17 06:14 Lymph % (Auto) 16.6 % (13.4-35.0) 05/29/17 06:14 [place] % (Auto) 9.5 % (0.0-7.3) H 05/29/17 06:14 Eos % (Auto) 0.0 % (0.0-4.3) 05/29/17 06:14 Baso % (Auto) 0.4 % (0.0-1.8) 05/29/17 06:14 Lymph # 2.7 K/mm3 (1.2-5.4) 05/29/17 06:14 [place] # 1.5 K/mm3 (0.0-0.8) H 05/29/17 06:14 Eos # 0.0 K/mm3 (0.0-0.4) 05/29/17 06:14 Baso # 0.1 K/mm3 (0.0-0.1) 05/29/17 06:14 Seg Neutrophils % 73.5 % (40.0-70.0) H 05/29/17 06:14 Seg Neutrophils # 11.8 K/mm3 (1.8-7.7) H 05/29/17 06:14 Sodium 141 mmol/L (137-145) 05/29/17 06:14 Potassium 4.0 mmol/L (3.6-5.0) 05/29/17 06:14 Chloride 102.3 mmol/L (98-107) 05/29/17 06:14 Carbon Dioxide 23 mmol/L (22-30) 05/29/17 06:14 Anion Gap 20 mmol/L 05/29/17 06:14 BUN 9 mg/dL (9-20) 05/29/17 06:14 Creatinine 1.0 mg/dL (0.8-1.5) 05/29/17 06:14 Estimated GFR > 60 ml/min 05/29/17 06:14 BUN/Creatinine Ratio 9 % 05/29/17 06:14 Glucose 107 mg/dL (75-100) H 05/29/17 06:14 Calcium 8.8 mg/dL (8.4-10.2) 05/29/17 06:14 Total Bilirubin 0.30 mg/dL (0.1-1.2) 05/27/17 15:41 AST 15 units/L (5-40) 05/27/17 15:41 ALT 22 units/L (7-56) 05/27/17 15:41 Alkaline Phosphatase 98 units/L (35-129) 05/27/17 15:41 Total Protein 8.2 g/dL (6.3-8.2) 05/27/17 15:41 Albumin 4.3 g/dL (3.9-5) 05/27/17 15:41 Albumin/Globulin Ratio 1.1 % 05/27/17 15:41 Lipase 19 units/L (13-60) 05/27/17 15:41 Urine Color Yellow (Yellow) 05/27/17 15:38 Urine Turbidity Clear (Clear) 05/27/17 15:38 Urine pH 8.0 (5.0-7.0) H 05/27/17 15:38 Ur Specific [place] 1.021 (1.003-1.030) 05/27/17 15:38 Urine Protein <15 mg/dl mg/dL (Negative) 05/27/17 15:38 Urine Glucose (UA) Neg mg/dL (Negative) 05/27/17 15:38 Urine Ketones Neg mg/dL (Negative) 05/27/17 15:38 Urine Blood Neg (Negative) 05/27/17 15:38 Urine Nitrite Neg (Negative) 05/27/17 15:38 Urine Bilirubin Neg (Negative) 05/27/17 15:38 Urine Urobilinogen < 2.0 mg/dL (<2.0) 05/27/17 15:38 Ur Leukocyte Esterase Neg (Negative) 05/27/17 15:38 Urine WBC (Auto) 1.0 /HPF (0.0-6.0) 05/27/17 15:38 Urine RBC (Auto) 2.0 /HPF (0.0-6.0) 05/27/17 15:38 Urine Mucus Few /HPF 05/27/17 15:38
[2017-05-29] MEDS ORDERED: GOLYTELY PO ONE (16:00)
[2017-05-30] MEDS: NACL 0.9% 1000 ML 1,000 ML IV SCH ×3 (00:06→19:55)
[2017-05-30] MEDS ORDERED: WATER FOR IRRIG STERILE IR ONE ×2 (08:04→08:05)
--- NOTE | 2017-05-30 08:57 | Anesthesia Day of Surgery ---
Anesthesia Day of Surgery - Day of Surgery Patient Examined: Yes Patient H&P Reviewed: Yes Patient is NPO: Yes
--- NOTE | 2017-05-30 08:57 | Anesthesia Consultation ---
Anesthesia Consult and Med Hx Date of service: 05/30/17 - Airway Anesthetic Teeth Evaluation: Good ROM Head & Neck: Adequate Mental/Hyoid Distance: Adequate Mallampati Class: Class II Intubation Access Assessment: Probably Good - Pulmonary Exam CTA: Yes - Cardiac Exam Cardiac Exam: RRR - Pre-Operative Health Status ASA Pre-Surgery Classification: ASA2 Proposed Anesthetic Plan: MAC - Pulmonary Hx Smoking: No Hx Asthma: No COPD: No Hx Pneumonia: No - Cardiovascular System Hx Hypertension: No - Central Nervous System Hx Psychiatric Problems: No - Other Systems Hx Cancer: Yes (mesenteric mass on CT) - Additional Comments Anesthesia Medical History Comments: Pt denies any familial anesthesia complication
[2017-05-30] MEDS ORDERED: DIPRIVAN 10 MG/ML IV ONE ×3 (09:02)
--- NOTE | 2017-05-30 09:36 | Post Operative Note ---
Pre-op diagnosis: abdominal pain, change in bowel habits, r/o gi malignancy Post-op diagnosis: other (EGD: gastritis; colonsocopy: internal hemorrhoids, poor prep, but no colon mass seen) Findings: EGD: gastritis/nodular mucosa in gastric body. biopsied. otherwise unremarkable. Colonoscopy: internal hemorrhoids, poor prep, but no colon mass seen Procedure: EGD with biopsies Colonoscopy Anesthesia: MAC Surgeon: CYRUS GOLDBERG Estimated blood loss: minimal Pathology: none (Jar A - gastric biopsies) Specimen disposition: to lab Condition: stable Disposition: floor
--- NOTE | 2017-05-30 09:39 | Operative Report ---
Operative Report Operative Report: ESOPHAGOGASTRODUODENOSCOPY with Biopsies Date of procedure: 05/30/2017 Endoscopist: Griffin Quinones Pre-op indication: nausea/vomiting, abdominal pain Post-op findings: gastritis, otherwise unremarkable Anesthesia/Medications: MAC Estimated Blood Loss: minimal Complications: No immediate complications Procedure: After consent was obtained, the patent was placed in the left lateral decubitus position. The [employer] upper endoscope was inserted into the patient's mouth under direct vision, and advanced to the 2nd portion of duodenum without difficulty. The views of the mucosa were good. The patient tolerated the procedure fairly well. The patient's vital signs were monitored continuously throughout the procedure. Findings: The esophagus appeared normal. There was mild erythematous and nodular mucosa in the proximal gastric body. Biopsies were obtained. Otherwise, the stomach appeared normal. The duodenum appeared normal. Impression: 1. Mild nodular/erythematous mucosa in gastric body (biopsied). Otherwise, unremarkable EGD. Recommendations: -follow-up pathology -colonoscopy to follow
--- NOTE | 2017-05-30 09:44 | Operative Report ---
Operative Report Operative Report: COLONOSCOPY PROCEDURE REPORT Date of procedure: 05/30/2017 Endoscopist: Griffin Quinones Pre-op indication: change in bowel habits, abdominal pain, rule out colorectal cancer (abnormal CT findings) Post-op findings: internal hemorrhoids, poor prep but no colon mass seen Anesthesia/Medications: MAC Estimated Blood Loss: none Complications: No immediate complications Procedure: After consent was obtained, the patent was placed in the left lateral decubitus position. The olympus colonoscope was inserted into the patient's rectum under direct vision, and advanced to the cecum without difficulty. The patient tolerated the procedure well. The views of the mucosa were fair to poor. The quality of prep was poor to identify small polyps/lesions. Findings: Internal hemorrhoids were seen on retroflexion view. Poor prep throughout colon (mostly semi-solid and liquid stool), however no obvious colon mass/cancer seen (adequate for this purpose). Impression: 1. No colon mass/cancer seen. 2. Internal hemorrhoids 3. Prep was poor to identify small polyps/lesions Recommendations: -no obvious GI source of suspected neoplasm seen on CT scan -percutaneous biopsy per IR Will sign off, please call as needed or with questions.
[2017-05-30] MEDS: PEPCID IV SCH ×2 (10:00→21:19)
--- NOTE | 2017-05-30 11:44 | Query- SIRS ---
Bonnie Baltazar Date:___05/30/2017 Road Supervisor/CDS:__Bia Phone#:___[phone] Exercise your independent professional judgment when responding to query. Questions asked do not imply a particular answer is desired or expected. We greatly appreciate your clarification on this issue. Clinical Documentation States: 47 Year old male was admitted on 05/27/2017 with complaints of abdominal pain and persistent nausea and vomiting. Clinical Findings Show (include reference to source document): 05/27 05/28 05/29 WBC 15.3 15.6 16 Based on the above clinical scenario and your knowledge of the patient, please indicate the most appropriate diagnosis: [ ] SIRS (non-infectious) with Acute Organ Dysfunction [ ] SIRS (non-infectious) without Acute Organ Dysfunction [x ] Other: leukocytosis due to the abdominal mass. No other finding to support SIRS. [ ] Unable to determine [ ] Comment/Explanation: Present on Admission: [x ] Yes (Y) [ ] Clinically undeterminable (W) [ ] No (N) Please also document response in your Progress Notes and/or Discharge Summary and indicate if the condition was present on admission. MAGDAD
--- NOTE | 2017-05-30 13:51 | Progress Note ---
Assessment and Plan Pt feeling well no compl Abd soft. GED & Colonoscopy findings noted. fortunately, no rectal mass seen. surgically stable begin liq dieet awaiting CT guided LN biopsy Objective Vital Signs - 12hr 05/30/17 05/30/17 05/30/17 07:35 08:34 08:39 Temperature 98.0 F 98.6 F 98.6 F Pulse Rate 87 94 H 94 H Respiratory 16 13 13 Rate Blood Pressure 138/90 154/105 154/105 O2 Sat by Pulse 97 95 95 Oximetry 05/30/17 05/30/17 05/30/17 09:31 09:46 10:01 Temperature 98.2 F Pulse Rate 87 88 87 Respiratory 13 17 12 Rate Blood Pressure 145/85 132/83 149/89 O2 Sat by Pulse 97 98 97 Oximetry 05/30/17 12:08 Temperature 98.1 F Pulse Rate Respiratory 18 Rate Blood Pressure 141/90 O2 Sat by Pulse Oximetry - Labs 05/29/17 06:14 05/29/17 06:14
--- NOTE | 2017-05-30 15:32 | Progress Note ---
Assessment and Plan Assessment and plan: Chronic abdominal pain Abdominal mass Leukocytosis - Patient is going to have EGD and colonoscopy this morning, EGD showed erythematous mucosa, colonoscopy showed internal hemorrhoids - Patient is going to have CT-guided biopsy tomorrow - Surgery and GI consult appreciated DVT prophylaxis - SCDs because he is going to have CT guided biopsy Disposition - Continue inpatient care until we finish the workup History Interval history: Patient was seen and evaluated this morning, nausea and vomiting is getting better. Patient had EGD and colonoscopy today. Hospitalist Physical - Physical exam Narrative exam: Not in cardiopulmonary distress. The patient obese. Vital signs as documented. Head exam is unremarkable. No scleral icterus . Neck is without jugular venous distension, thyromegaly, or carotid bruits. Lungs are clear to auscultation. Cardiac exam reveals regular rate and Rhythm. First and second heart sounds normal. No murmurs, rubs or gallops. Abdominal exam reveals normal bowel sounds, no masses, no organomegaly and no aortic enlargement. Extremities are nonedematous and both femoral and pedal pulses are normal. DIRECTOR OF MARKETING ANALYTICS: Alert and oriented 3. No focal weakness. - Constitutional Vitals: Temp Pulse Resp BP Pulse Ox 98.1 F 87 18 125/73 97 05/30/17 14:54 05/30/17 10:01 05/30/17 14:54 05/30/17 14:54 05/30/17 10:01 General appearance: Present: no acute distress Results - Labs CBC & Chem 7: 05/29/17 06:14 05/29/17 06:14 Labs: Laboratory Last Values WBC 16.0 K/mm3 (4.5-11.0) H 05/29/17 06:14 RBC 4.53 M/mm3 (3.65-5.03) 05/29/17 06:14 Hgb 12.7 gm/dl (11.8-15.2) 05/29/17 06:14 Hct 38.9 % (35.5-45.6) 05/29/17 06:14 MCV 86 fl (84-94) 05/29/17 06:14 MCH 28 pg (28-32) 05/29/17 06:14 MCHC 33 % (32-34) 05/29/17 06:14 RDW 13.4 % (13.2-15.2) 05/29/17 06:14 Plt Count 387 K/mm3 (140-440) 05/29/17 06:14 Lymph % (Auto) 16.6 % (13.4-35.0) 05/29/17 06:14 [place] % (Auto) 9.5 % (0.0-7.3) H 05/29/17 06:14 Eos % (Auto) 0.0 % (0.0-4.3) 05/29/17 06:14 Baso % (Auto) 0.4 % (0.0-1.8) 05/29/17 06:14 Lymph # 2.7 K/mm3 (1.2-5.4) 05/29/17 06:14 [place] # 1.5 K/mm3 (0.0-0.8) H 05/29/17 06:14 Eos # 0.0 K/mm3 (0.0-0.4) 05/29/17 06:14 Baso # 0.1 K/mm3 (0.0-0.1) 05/29/17 06:14 Seg Neutrophils % 73.5 % (40.0-70.0) H 05/29/17 06:14 Seg Neutrophils # 11.8 K/mm3 (1.8-7.7) H 05/29/17 06:14 Sodium 141 mmol/L (137-145) 05/29/17 06:14 Potassium 4.0 mmol/L (3.6-5.0) 05/29/17 06:14 Chloride 102.3 mmol/L (98-107) 05/29/17 06:14 Carbon Dioxide 23 mmol/L (22-30) 05/29/17 06:14 Anion Gap 20 mmol/L 05/29/17 06:14 BUN 9 mg/dL (9-20) 05/29/17 06:14 Creatinine 1.0 mg/dL (0.8-1.5) 05/29/17 06:14 Estimated GFR > 60 ml/min 05/29/17 06:14 BUN/Creatinine Ratio 9 % 05/29/17 06:14 Glucose 107 mg/dL (75-100) H 05/29/17 06:14 Calcium 8.8 mg/dL (8.4-10.2) 05/29/17 06:14 Total Bilirubin 0.30 mg/dL (0.1-1.2) 05/27/17 15:41 AST 15 units/L (5-40) 05/27/17 15:41 ALT 22 units/L (7-56) 05/27/17 15:41 Alkaline Phosphatase 98 units/L (35-129) 05/27/17 15:41 Total Protein 8.2 g/dL (6.3-8.2) 05/27/17 15:41 Albumin 4.3 g/dL (3.9-5) 05/27/17 15:41 Albumin/Globulin Ratio 1.1 % 05/27/17 15:41 Lipase 19 units/L (13-60) 05/27/17 15:41 Urine Color Yellow (Yellow) 05/27/17 15:38 Urine Turbidity Clear (Clear) 05/27/17 15:38 Urine pH 8.0 (5.0-7.0) H 05/27/17 15:38 Ur Specific [place] 1.021 (1.003-1.030) 05/27/17 15:38 Urine Protein <15 mg/dl mg/dL (Negative) 05/27/17 15:38 Urine Glucose (UA) Neg mg/dL (Negative) 05/27/17 15:38 Urine Ketones Neg mg/dL (Negative) 05/27/17 15:38 Urine Blood Neg (Negative) 05/27/17 15:38 Urine Nitrite Neg (Negative) 05/27/17 15:38 Urine Bilirubin Neg (Negative) 05/27/17 15:38 Urine Urobilinogen < 2.0 mg/dL (<2.0) 05/27/17 15:38 Ur Leukocyte Esterase Neg (Negative) 05/27/17 15:38 Urine WBC (Auto) 1.0 /HPF (0.0-6.0) 05/27/17 15:38 Urine RBC (Auto) 2.0 /HPF (0.0-6.0) 05/27/17 15:38 Urine Mucus Few /HPF 05/27/17 15:38
[2017-05-31] MEDS: NACL 0.9% 1000 ML 1,000 ML IV SCH ×2 (06:31→18:26)
--- NOTE | 2017-05-31 10:16 | Event Note ---
Date: 05/31/17 The patient ate breakfast this morning. As such, he would not be a candidate for sedation until later this afternoon. I have rescheduled the biopsy procedure for tomorrow with Dr. iMke. I spoke to Dr. Mike directly, and he is amenable to this.
[2017-05-31] MEDS: PEPCID IV SCH ×2 (11:02→22:40)
--- NOTE | 2017-05-31 14:29 | Progress Note ---
Assessment and Plan Assessment and plan: Chronic abdominal pain Abdominal mass Leukocytosis - EGD showed erythematous mucosa, colonoscopy showed internal hemorrhoids - Patient is going to have CT-guided biopsy tomorrow, he is supposed to have this morning but the patient ate breakfast - Surgery and GI consult appreciated DVT prophylaxis - SCDs because he is going to have CT guided biopsy Disposition -Positive discharge tomorrow after CT guided biopsy History Interval history: Patient was seen and evaluated this morning, nausea and vomiting resolved. Hospitalist Physical - Physical exam Narrative exam: Not in cardiopulmonary distress. The patient obese. Vital signs as documented. Head exam is unremarkable. No scleral icterus . Neck is without jugular venous distension, thyromegaly, or carotid bruits. Lungs are clear to auscultation. Cardiac exam reveals regular rate and Rhythm. First and second heart sounds normal. No murmurs, rubs or gallops. Abdominal exam reveals normal bowel sounds, no masses, no organomegaly and no aortic enlargement. Extremities are nonedematous and both femoral and pedal pulses are normal. 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 No focal weakness. - Constitutional Vitals: Temp Pulse Resp BP Pulse Ox 98.3 F 84 20 123/72 99 05/31/17 07:53 05/31/17 07:53 05/31/17 07:53 05/31/17 07:53 05/31/17 07:53 General appearance: Present: no acute distress Results - Labs CBC & Chem 7: 05/29/17 06:14 05/29/17 06:14 Labs: Laboratory Last Values WBC 16.0 K/mm3 (4.5-11.0) H 05/29/17 06:14 RBC 4.53 M/mm3 (3.65-5.03) 05/29/17 06:14 Hgb 12.7 gm/dl (11.8-15.2) 05/29/17 06:14 Hct 38.9 % (35.5-45.6) 05/29/17 06:14 MCV 86 fl (84-94) 05/29/17 06:14 MCH 28 pg (28-32) 05/29/17 06:14 MCHC 33 % (32-34) 05/29/17 06:14 RDW 13.4 % (13.2-15.2) 05/29/17 06:14 Plt Count 387 K/mm3 (140-440) 05/29/17 06:14 Lymph % (Auto) 16.6 % (13.4-35.0) 05/29/17 06:14 [place] % (Auto) 9.5 % (0.0-7.3) H 05/29/17 06:14 Eos % (Auto) 0.0 % (0.0-4.3) 05/29/17 06:14 Baso % (Auto) 0.4 % (0.0-1.8) 05/29/17 06:14 Lymph # 2.7 K/mm3 (1.2-5.4) 05/29/17 06:14 [place] # 1.5 K/mm3 (0.0-0.8) H 05/29/17 06:14 Eos # 0.0 K/mm3 (0.0-0.4) 05/29/17 06:14 Baso # 0.1 K/mm3 (0.0-0.1) 05/29/17 06:14 Seg Neutrophils % 73.5 % (40.0-70.0) H 05/29/17 06:14 Seg Neutrophils # 11.8 K/mm3 (1.8-7.7) H 05/29/17 06:14 Sodium 141 mmol/L (137-145) 05/29/17 06:14 Potassium 4.0 mmol/L (3.6-5.0) 05/29/17 06:14 Chloride 102.3 mmol/L (98-107) 05/29/17 06:14 Carbon Dioxide 23 mmol/L (22-30) 05/29/17 06:14 Anion Gap 20 mmol/L 05/29/17 06:14 BUN 9 mg/dL (9-20) 05/29/17 06:14 Creatinine 1.0 mg/dL (0.8-1.5) 05/29/17 06:14 Estimated GFR > 60 ml/min 05/29/17 06:14 BUN/Creatinine Ratio 9 % 05/29/17 06:14 Glucose 107 mg/dL (75-100) H 05/29/17 06:14 Calcium 8.8 mg/dL (8.4-10.2) 05/29/17 06:14 Total Bilirubin 0.30 mg/dL (0.1-1.2) 05/27/17 15:41 AST 15 units/L (5-40) 05/27/17 15:41 ALT 22 units/L (7-56) 05/27/17 15:41 Alkaline Phosphatase 98 units/L (35-129) 05/27/17 15:41 Total Protein 8.2 g/dL (6.3-8.2) 05/27/17 15:41 Albumin 4.3 g/dL (3.9-5) 05/27/17 15:41 Albumin/Globulin Ratio 1.1 % 05/27/17 15:41 Lipase 19 units/L (13-60) 05/27/17 15:41 Urine Color Yellow (Yellow) 05/27/17 15:38 Urine Turbidity Clear (Clear) 05/27/17 15:38 Urine pH 8.0 (5.0-7.0) H 05/27/17 15:38 Ur Specific [place] 1.021 (1.003-1.030) 05/27/17 15:38 Urine Protein <15 mg/dl mg/dL (Negative) 05/27/17 15:38 Urine Glucose (UA) Neg mg/dL (Negative) 05/27/17 15:38 Urine Ketones Neg mg/dL (Negative) 05/27/17 15:38 Urine Blood Neg (Negative) 05/27/17 15:38 Urine Nitrite Neg (Negative) 05/27/17 15:38 Urine Bilirubin Neg (Negative) 05/27/17 15:38 Urine Urobilinogen < 2.0 mg/dL (<2.0) 05/27/17 15:38 Ur Leukocyte Esterase Neg (Negative) 05/27/17 15:38 Urine WBC (Auto) 1.0 /HPF (0.0-6.0) 05/27/17 15:38 Urine RBC (Auto) 2.0 /HPF (0.0-6.0) 05/27/17 15:38 Urine Mucus Few /HPF 05/27/17 15:38
[2017-06-01 07:47] LABS: Partial Thromboplastin Time 28.9 Sec. (24.2-36.6)
[2017-06-01] MEDS: PEPCID IV SCH (09:04)
[2017-06-01] MEDS: NACL 0.9% 1000 ML 1,000 ML IV SCH (09:04)
--- NOTE | 2017-06-01 10:39 | Progress Note ---
Assessment and Plan Pt not in room. just picked up for CT guided LN biopsy. in room states he 's doing well. willian diet. no pain. surgically stable await biopsy report Objective Vital Signs - 12hr 05/31/17 05/31/17 06/01/17 23:20 23:22 07:55 Temperature 98.7 F 97.9 F Pulse Rate 86 79 Respiratory 20 20 Rate Blood Pressure 134/88 147/99 O2 Sat by Pulse 97 94 99 Oximetry - Labs 05/29/17 06:14 05/29/17 06:14
--- NOTE | 2017-06-01 11:42 | Cat Scan Report ---
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 Description of procedure: Informed consent was obtained. Sterile technique was utilized. 1% lidocaine for skin anesthesia. Moderate sedation was accomplished with Versed and fentanyl. The patient was sedated for 20 minutes. Independent cardiorespiratory monitoring by RN. Intraobserver time of [address] guidance, a 17-gauge introducer needle was advanced to the leading edge of a 3.6 cm enlarged lymph node in the right lower quadrant mesentery. 5 separate 1.4 cm 18-gauge core biopsies were obtained. Pathology was present to handle the sample. Followup scan demonstrates no evidence for hemorrhage. The patient tolerated the procedure without difficulty. Impression: Successful CT-guided biopsy of the right lower quadrant mesenteric adenopathy.
[2017-06-01] MEDS ORDERED: SUBLIMAZE IV ONE (11:45)
[2017-06-01] MEDS ORDERED: VERSED IV ONE ×2 (11:45→12:00)
[2017-06-01] MEDS ORDERED: SUBLIMAZE ONE (12:01)
--- NOTE | 2017-06-01 15:26 | Discharge Summary ---
Providers - Providers Date of Admission: 05/28/17 00:38 Date of discharge: 06/01/17 Attending physician: SYLVIE CHANG MD 05/27/17 23:53 Consult to Physician [CONS] Routine Consulting Provider: YESY BANERJEE Reason For Exam: Abd pain, abdominal masses Place consult to:: chucky Notified:: y Was contact made?: Yes If yes, spoke with:: Dr Banerjee 05/28/17 11:42 Consult to Physician [CONS] Routine Consulting Provider: JOHANA COOPER Reason For Exam: r/o rectal mass Place consult to:: dr. cooper Notified:: answering service Phone number called:: / Was contact made?: Yes If yes, spoke with:: buck Time called:: 12:40 05/28/17 11:43 Consult to Physician [CONS] Routine Consulting Provider: RAJ QUINONES Reason For Exam: CT guided LN biopsy Place consult to:: dr. quinones/ dhiraj Notified:: answering service Phone number called:: Was contact made?: Yes If yes, spoke with:: radha Time called:: 12:46 Primary care physician: CLIP COATER Hospitalization Reason for admission: mesentric mass, Intractable N/V Condition: Stable Pertinent studies: EGD CT Guided mesenteric LN biopsy Procedures: CT guided LN Biopsy Hospital course: This is a 47-year-old male with no significant past medical history who presents to the emergency department with complaints of abdominal pain and persistent nausea and vomiting. He is unable to even keep liquids down. He took some Pepto-Bismol for his symptoms without much relief. He denies any fever, problems with bowel or bladder, back pain or dysuria. Patient states that his vomitus is of gastric contents. He denies any hematemesis. No chills. No cough, cold like symptoms. Patient states that his pain has been relieved with morphine given in the ER. Patient was admitted to the floor was treated with IV fluids, Symptomatic management for pain and vomiting. Patient was restarted with liquid diet then advanced to reular diet. GI consulted and EGD, colonoscopy with biopsy and result was pending at the time of discharge and patient was scheduled to have follow Up with GI to discuss the reult and further management. patient has Mesenteric LN biopsy and he is scheduled to see Surgery as an O/P to discuss the biopsy result and further management. patient's nausea and vomiting subsided at the time of discharge and was hemodynamically stable. Disposition: DC-01 TO HOME OR SELFCARE Time spent for discharge: 31 minutes - Discharge Diagnoses (1) Abdominal mass Status: Acute Qualifiers: Abdominal location: unspecified location Qualified Code(s): R19.00 - Intra- abdominal and pelvic swelling, mass and lump, unspecified site (2) Abdominal pain Status: Acute Qualifiers: Abdominal location: generalized Qualified Code(s): R10.84 - Generalized abdominal pain (3) Mesenteric mass Status: Acute (4) Nausea and vomiting Status: Acute Qualifiers: Vomiting type: unspecified Vomiting Intractability: non-intractable Qualified Code(s): R11.2 - Nausea with vomiting, unspecified Core Measure Documentation - Palliative Care Palliative Care/ Comfort Measures: Not Applicable - Core Measures Any of the following diagnoses?: none Exam - Physical Exam Narrative exam: Not in cardiopulmonary distress. The patient obese. Vital signs as documented. Head exam is unremarkable. No scleral icterus . Neck is without jugular venous distension, thyromegaly, or carotid bruits. Lungs are clear to auscultation. Cardiac exam reveals regular rate and Rhythm. First and second heart sounds normal. No murmurs, rubs or gallops. Abdominal exam reveals normal bowel sounds, no masses, no organomegaly and no aortic enlargement. Extremities are nonedematous and both femoral and pedal pulses are normal. 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 No focal weakness. - Constitutional Vitals: Temp Pulse Resp BP Pulse Ox 97.9 F 78 12 130/87 98 06/01/17 07:55 06/01/17 11:41 06/01/17 11:41 06/01/17 11:41 06/01/17 11:41 Plan Activity: no restrictions Weight Bearing Status: Full Weight Bearing Diet: low fat Follow up with: YESY BANERJEE MD [Staff Physician] - 7 Days PRIMARY CAREMD [Primary Care Provider] - 3-5 Days CYRUS GOLDBERG MD [Staff Physician] - 7 Days
[2017-06-01 16:10] VITALS: BP 144/96
[2017-06-09 14:09] LABS: CYTOMETRY FIRST MARKER SCANNED INTO MED REC; FLOW CYTOMETRY >16 SCANNED INTO MED REC
== END 2017-06-01 17:02 | disposition home or self-care (01) | DRG 392 ==
LOC: ED 15:28 → 3A 05-28 00:38
PROVIDERS: ADMIT Hospitalist; ATTEND Internal Medicine
PROC: 0DB68ZX Excision of Stomach, Via Natural or Artificial Opening Endoscopic, Diagnostic (ICD-10-PCS; principal; 2017-05-30)
PROC: 0DJD8ZZ Inspection of Lower Intestinal Tract, Via Natural or Artificial Opening Endoscopic (ICD-10-PCS; 2017-05-30)
DX: R19.00 Intra-abdominal and pelvic swelling, mass and lump, unspecified site (principal); K29.70 Gastritis, unspecified, without bleeding; R11.2 Nausea with vomiting, unspecified; K64.8 Other hemorrhoids; Z80.42 Family history of malignant neoplasm of prostate; Z82.49 Family history of ischemic heart disease and other diseases of the circulatory system
CPT/HCPCS: 36415; 74177; 77012; 80048; 80053; 81001; 83690; 85025; 85610; 85730; 88172; 88173; 88184; 88185; 88305; 88333; 88341; 88342; 96361; 96374; 96375; J1650; J2250; J2270; J2405; J2704; J3010; J7030; Q9967

== ENCOUNTER 2017-06-07 13:45 | Emergency (ER) | payer OTHER ==
[2017-06-07 15:14] LABS: Basophils % (Auto) 1.3 % (0.0-1.8); Eosinophils % (Auto) 0.5 % (0.0-4.3); Hematocrit 40.3 % (35.5-45.6); Hemoglobin 12.7 gm/dl (11.8-15.2); Mean Corpuscular HGB Conc 32 % (32-34); Mean Corpuscular Hemoglobin 27 pg (28-32); Mean Corpuscular Volume 86 fl (84-94); Platelet Count 533 K/mm3 (140-440); Red Blood Count 4.69 M/mm3 (3.65-5.03); Red Cell Distribution Width 13.6 % (13.2-15.2); White Blood Count 15.6 K/mm3 (4.5-11.0)
[2017-06-07 15:31] LABS: Alanine Aminotransferase 60 units/L (7-56); Albumin 3.5 g/dL (3.9-5); Albumin/Globulin Ratio 0.8 %; Alkaline Phosphatase 110 units/L (35-129); Anion Gap 18 mmol/L; BUN/Creatinine Ratio 11; Blood Urea Nitrogen 11 mg/dL (9-20); Calcium 9.4 mg/dL (8.4-10.2); Carbon Dioxide 25 mmol/L (22-30); Chloride 102.6 mmol/L (98-107); Glucose 103 mg/dL (75-100); Potassium 4.3 mmol/L (3.6-5.0); Sodium 141 mmol/L (137-145); Total Protein 7.7 g/dL (6.3-8.2)
[2017-06-07 16:00] LABS: Bacteria,Urine 1+ /HPF (Negative); Bilirubin,Urine NEG (Negative); Blood,Urine LG (Negative); Ketones,Urine NEG (Negative); Leukocyte Esterase,Urine LG (Negative); Mucus,Urine 3+ /HPF; Nitrite,Urine POS (Negative); Urobilinogen,Urine < 2.0 mg/dL (<2.0)
[2017-06-08] MEDS ORDERED: MACROBID PO ONE (01:59)
[2017-06-08] MEDS ORDERED: PYRIDIUM PO ONE (01:59)
--- NOTE | 2017-06-08 02:00 | Emergency Department Report ---
ED Male HPI - General Chief complaint: Urogenital-Male Stated complaint: BLOOD IN URINE Time Seen by Provider: 06/08/17 01:49 Source: patient, RN notes reviewed Mode of arrival: Ambulatory Limitations: No Limitations - History of Present Illness Initial comments: This is a 47-year-old male who was previously unknown to this provider, and presents to the ER with a complaint of hematuria and dysuria. Symptoms going on for the past 2 or 3 days. They're constant. It did not radiate anywhere. It does not do not have exacerbating or relieving factors. Patient indicates no recent intercourse, does not think he's had recent urinary mentation. Patient indicates no headache, neck pain, chest pain, abdominal pain, shortness of breath, fevers, chills, flank pain, dyschezia, or rectal pain. MD Complaint: dysuria -: Gradual, days(s) Radiation: none Consistency: constant Improves with: none Worsens with: none blood in urine, dysuria. denies: discharge, swelling, fever, nausea/vomiting, incontinence - Related Data Sexually active: Yes Previous Rx's Medication Instructions Recorded Last Taken Type Nitrofurantoin [place]/M-Cryst 100 mg PO Q12HR #13 capsule 06/08/17 Unknown Rx [Macrobid CAP] Phenazopyridine [Pyridium] 100 mg PO TID PRN #6 tab 06/08/17 Unknown Rx Allergies Allergy/AdvReac Type Severity Reaction Status Date / Time No Known Allergies Allergy Unverified 05/27/17 15:29 ED Review of Systems ROS: Stated complaint: BLOOD IN URINE Other details as noted in HPI ED Past Medical Hx - Past Medical History Hx Hypertension: No Hx Congestive Heart Failure: No Hx Diabetes: No Hx Asthma: No Hx COPD: No Hx HIV: No - Social History Smoking Status: Never Smoker Substance Use Type: None - Medications Home Medications: Home Medications Medication Instructions Recorded Confirmed Last Taken Type Nitrofurantoin [place]/M-Cryst 100 mg PO Q12HR #13 capsule 06/08/17 Unknown Rx [Macrobid CAP] Phenazopyridine [Pyridium] 100 mg PO TID PRN #6 tab 06/08/17 Unknown Rx ED Physical Exam - General Limitations: No Limitations General appearance: alert, in no apparent distress - Head Head exam: Present: atraumatic, normocephalic - Eye Eye exam: Present: normal appearance, EOMI. Absent: nystagmus - ENT ENT exam: Present: normal exam, normal orophraynx, mucous membranes moist, normal external ear exam - Neck Neck exam: Present: normal inspection, full ROM - Respiratory Respiratory exam: Present: normal lung sounds bilaterally. Absent: respiratory distress - Cardiovascular Cardiovascular Exam: Present: regular rate, normal rhythm, normal heart sounds. Absent: systolic murmur, diastolic murmur, rubs, gallop - GI/Abdominal GI/Abdominal exam: Present: soft, normal bowel sounds. Absent: distended, tenderness, guarding, rebound, rigid, bruit, pulsatile mass - Rectal Rectal exam: Present: deferred - exam: Present: normal inspection, other (during genital exam, escorted by nurse Jason). Absent: testicular tenderness External exam: Present: normal external exam, other (there is no testicular tenderness. There is normal testicular lie bilaterally. There is normal cremasteric reflex bilaterally.) - Extremities Exam Extremities exam: Present: normal inspection, full ROM, normal capillary refill. Absent: tenderness, pedal edema, joint swelling, calf tenderness - Back Exam Back exam: Present: normal inspection, full ROM. Absent: tenderness, paraspinal tenderness, vertebral tenderness - Neurological Exam Neurological exam: Present: alert, oriented X3, CN II-XII intact, normal gait, other (Extraocular movements intact. Tongue midline. No facial droop. Facial sensation intact to light touch in the V1, V2, V3 distribution bilaterally. 5 and 5 strength in 4 extremities.. Sensation is intact to light touch in 4 extremities.). Absent: motor sensory deficit - Psychiatric Psychiatric exam: Present: normal affect, normal mood - Skin Skin exam: Present: warm, dry, intact, normal color. Absent: rash ED Course Vital Signs 06/07/17 06/07/17 14:27 23:46 Temperature 98.8 F 98.4 F Pulse Rate 100 H 106 H Respiratory 16 16 Rate Blood Pressure 134/86 131/85 O2 Sat by Pulse 98 98 Oximetry ED Medical Decision Making - Lab Data Result diagrams: 06/07/17 14:57 06/07/17 14:57 Vital Signs 06/07/17 06/07/17 14:27 23:46 Temperature 98.8 F 98.4 F Pulse Rate 100 H 106 H Respiratory 16 16 Rate Blood Pressure 134/86 131/85 O2 Sat by Pulse 98 98 Oximetry Lab Results 06/07/17 06/07/17 06/07/17 Range/Units 14:57 14:57 15:11 WBC 15.6 H (4.5-11.0) K/mm3 RBC 4.69 (3.65-5.03) M/mm3 Hgb 12.7 (11.8-15.2) gm/dl Hct 40.3 (35.5-45.6) % MCV 86 (84-94) fl MCH 27 L (28-32) pg MCHC 32 (32-34) % RDW 13.6 (13.2-15.2) % Plt Count 533 H (140-440) K/mm3 Lymph % (Auto) 17.4 (13.4-35.0) % [place] % (Auto) 8.7 H (0.0-7.3) % Eos % (Auto) 0.5 (0.0-4.3) % Baso % (Auto) 1.3 (0.0-1.8) % Lymph # 2.7 (1.2-5.4) K/mm3 [place] # 1.4 H (0.0-0.8) K/mm3 Eos # 0.1 (0.0-0.4) K/mm3 Baso # 0.2 H (0.0-0.1) K/mm3 Seg Neutrophils % 72.1 H (40.0-70.0) % Seg Neutrophils # 11.3 H (1.8-7.7) K/mm3 Sodium 141 (137-145) mmol/L Potassium 4.3 (3.6-5.0) mmol/L Chloride 102.6 (98-107) mmol/L Carbon Dioxide 25 (22-30) mmol/L Anion Gap 18 mmol/L BUN 11 (9-20) mg/dL Creatinine 1.0 (0.8-1.5) mg/dL Estimated GFR > 60 ml/min BUN/Creatinine Ratio 11 % Glucose 103 H (75-100) mg/dL Calcium 9.4 (8.4-10.2) mg/dL Total Bilirubin 0.20 (0.1-1.2) mg/dL AST 31 (5-40) units/L ALT 60 H (7-56) units/L Alkaline Phosphatase 110 (35-129) units/L Total Protein 7.7 (6.3-8.2) g/dL Albumin 3.5 L (3.9-5) g/dL Albumin/Globulin Ratio 0.8 % Urine Color Yellow (Yellow) Urine Turbidity Slightly-cloudy (Clear) Urine pH 5.0 (5.0-7.0) Ur Specific [place] 1.024 (1.003-1.030) Urine Protein 30 mg/dl (Negative) mg/dL Urine Glucose (UA) Neg (Negative) mg/dL Urine Ketones Neg (Negative) mg/dL Urine Blood Lg (Negative) Urine Nitrite Pos (Negative) Urine Bilirubin Neg (Negative) Urine Urobilinogen < 2.0 (<2.0) mg/dL Ur Leukocyte Esterase Lg (Negative) Urine WBC (Auto) 165.0 H (0.0-6.0) /HPF Urine RBC (Auto) 51.0 (0.0-6.0) /HPF Urine Bacteria (Auto) 1+ (Negative) /HPF Ur Transition Epith Cell 1 /HPF Urine Mucus 3+ /HPF - Radiology Data Differential diagnosis, including not limited to: - Medical Decision Making Differential diagnosis, including but not limited to: Urinary tract infection, cancer, tumor, malignancy Assessment and plan: 47-year-old male who is afebrile with reassuring vital signs, his tachycardia has resolved on my physical exam, with irritative urinary symptoms and hematuria. His urinalysis suggests cystitis. He does not have flank tenderness or perineum tenderness, he does not have any symptoms to suggest upper urinary tract infection or prostatitis. Patient most likely has a cystitis. He will be treated empirically for a cystitis. He does not have risk factors for bladder tumor, malignancy, but he will be referred to outpatient urology for further evaluation and management. Critical care attestation.: If time is entered above; I have spent that time in minutes in the direct care of this critically ill patient, excluding procedure time. ED Disposition Clinical Impression: Hematuria Disposition: DC-01 TO HOME OR SELFCARE Is pt being admited?: No Does the pt Need Aspirin: No Condition: Stable Instructions: Urinary Tract Infection in Men (ED) Additional Instructions: Take the antibiotics and pain medication as directed, needed. Do not consume alcohol while taking the pain medication. Cultures were sent today and results will be available in the next 3-5 days. Have a primary care doctor or urology specialist contact the medical records department to obtain culture results. Follow up with a urology specialist within the next month. Not following up as recommended may resultant undiagnosed tumor, cancer, malignancy of the urinary tract. Do not engaged in sex or sexual intercourse until cleared by either her primary care doctor or a urology specialist. Return to the ER right away with you pain, rectal pain, flank pain, fevers, chills, lethargy, irritability, projectile vomiting, change in mental status, confusion, inability to tolerate liquid feeds. Dr. Rosa is a local urology specialist. Referrals: PRIMARY CAREMD [Primary Care Provider] - 3-5 Days AMY RESENDEZ MD [Staff Physician] - 3-5 Days [facility] [Provider Group] - 3-5 Days
[2017-06-08 02:59] VITALS: BP 136/87
== END 2017-06-08 02:25 | disposition home or self-care (01) ==
LOC: ED 13:45
DX: R31.9 Hematuria, unspecified (principal)
CPT/HCPCS: 36415; 80053; 81001; 85025; 87076; 87086; 87186; 99283

== ENCOUNTER 2017-07-08 18:53 | Emergency (ER) | payer SELFPAY ==
[2017-07-08] MEDS ORDERED: ZOFRAN IM ONE (23:50)
[2017-07-08] MEDS ORDERED: TORADOL IM ONE (23:51)
[2017-07-09 00:06] LABS: Basophils # (Auto) 0.3 K/mm3 (0.0-0.1); Basophils % (Auto) 1.9 % (0.0-1.8); Eosinophils % (Auto) 0.1 % (0.0-4.3); Hematocrit 42.9 % (35.5-45.6); Hemoglobin 13.5 gm/dl (11.8-15.2); Lymphocytes # (Auto) 1.8 K/mm3 (1.2-5.4); Lymphocytes % (Auto) 12.4 % (13.4-35.0); Mean Corpuscular HGB Conc 32 % (32-34); Mean Corpuscular Hemoglobin 27 pg (28-32); Mean Corpuscular Volume 86 fl (84-94); Monocytes # (Auto) 0.8 K/mm3 (0.0-0.8); Monocytes % (Auto) 5.5 % (0.0-7.3); Platelet Count 369 K/mm3 (140-440); Red Blood Count 5.01 M/mm3 (3.65-5.03); Red Cell Distribution Width 13.9 % (13.2-15.2)
[2017-07-09 00:36] LABS: Alanine Aminotransferase 18 units/L (7-56); Albumin 4.5 g/dL (3.9-5); BUN/Creatinine Ratio 7; Blood Urea Nitrogen 6 mg/dL (9-20); Calcium 9.8 mg/dL (8.4-10.2); Hemolysis Index 21; Lipase 25 units/L (13-60)
[2017-07-09 09:34] LABS: Bilirubin,Urine NEG (Negative); Blood,Urine NEG (Negative); Color,Urine Yellow (Yellow); Mucus,Urine 3+ /HPF; Nitrite,Urine NEG (Negative); Urobilinogen,Urine < 2.0 mg/dL (<2.0)
[2017-07-09] MEDS ORDERED: ALUM-MAG HYDROX-SIMETH 200-200-20MG/5ML PO ONE (09:45)
[2017-07-09] MEDS ORDERED: LIDOCAINE VISCOUS 2% PO ONE (09:46)
--- NOTE | 2017-07-09 09:59 | Emergency Department Report ---
HPI - General Chief Complaint: Abdominal Pain Time Seen by Provider: 07/09/17 09:31 - HPI HPI: This is a 47-year-old male presents to the emergency department from home with complaint of some epigastric abdominal pain with nausea and vomiting that started yesterday morning. The patient went out right evening and had some type of vegetable platter cooked at a restaurant. He woke up in next day and "felt funny" and he tried to go to work but the symptoms started and worsened. He has a history of H. pylori from 2 months ago and finished the cocktail of antibiotics and medications. No recent travel or sick contacts at home. He denies any constipation, dysuria, diarrhea, fever. ED Past Medical Hx - Past Medical History Hx Hypertension: No Hx Congestive Heart Failure: No Hx Diabetes: No Hx Asthma: No Hx COPD: No Hx HIV: No Additional medical history: H. Pylori - Surgical History Past Surgical History?: No - Social History Smoking Status: Never Smoker Substance Use Type: None - Medications Home Medications: Home Medications Medication Instructions Recorded Confirmed Last Taken Type Nitrofurantoin [place]/M-Cryst 100 mg PO Q12HR #13 capsule 06/08/17 Unknown Rx [Macrobid CAP] Phenazopyridine [Pyridium] 100 mg PO TID PRN #6 tab 06/08/17 Unknown Rx Omeprazole Magnesium [PriLOSEC Otc] 20 mg PO QDAY #20 tablet. 07/09/17 Unknown Rx Ondansetron [Zofran Odt] 4 mg PO Q8H PRN #10 tab.rapdis 07/09/17 Unknown Rx ED Review of Systems ROS: Stated complaint: FLU LIKE SYMPTOMS Other details as noted in HPI Comment: All other systems reviewed and negative Constitutional: denies: chills, fever Eyes: denies: eye pain, eye discharge, vision change ENT: denies: ear pain, throat pain Respiratory: denies: cough, shortness of breath, wheezing Cardiovascular: denies: chest pain, palpitations Gastrointestinal: abdominal pain, nausea, vomiting Genitourinary: denies: urgency, dysuria Musculoskeletal: denies: back pain, joint swelling, arthralgia Skin: denies: rash, lesions Neurological: denies: headache, weakness, paresthesias Physical Exam - Physical Exam Vital Signs: Vital Signs 07/08/17 23:41 Temperature 98.2 F Pulse Rate 81 Respiratory 18 Rate Blood Pressure 151/91 O2 Sat by Pulse 100 Oximetry Physical Exam: GENERAL: The patient is well-developed well-nourished. HENT: Normocephalic. Atraumatic. Patient has moist mucous membranes. EYES: Extraocular motions are intact. Pupils equal reactive to light bilaterally. NECK: Supple. Trachea is midline. CHEST/LUNGS: Clear to auscultation. There is no respiratory distress noted. HEART/CARDIOVASCULAR: Regular. There is no tachycardia. There is no murmur. ABDOMEN: Abdomen is soft. Mild tenderness to palpation to the epigastric region. No guarding or rebound tenderness. Patient has normal bowel sounds. There is no abdominal distention. SKIN: Skin is warm and dry. NEURO: The patient is awake, alert, and oriented. The patient is cooperative. The patient has no focal neurologic deficits. The patient has normal speech. MUSCULOSKELETAL: There is no tenderness or deformity. There is no limitation range of motion. There is no evidence of acute injury. ED Course Vital Signs 07/08/17 23:41 Temperature 98.2 F Pulse Rate 81 Respiratory 18 Rate Blood Pressure 151/91 O2 Sat by Pulse 100 Oximetry ED Medical Decision Making - Lab Data Result diagrams: 07/08/17 23:53 07/08/17 23:53 - Radiology Data Radiology results: image reviewed interpreted by me: Abdominal x-ray shows nonspecific nonobstructive bowel gas. - Medical Decision Making Patient presents with some epigastric pain, nausea and vomiting after eating some food [place] night. He has been in the emergency department for about 16 hours and there has been no further nausea or vomiting after he got some Zofran. His labs are unremarkable except for a mild leukocytosis which is most likely reactive to his previous nausea and vomiting. He was able to keep down a GI cocktail and afterwards that he was feeling much better. Abdominal x-ray does not show any acute process. He does have a history of previous GERD and H. pylori. He has been encouraged to follow-up with the primary care physician and switchboard receptionist. He will be sent home with Zofran and an acid head charger. He will return to the ER with any worsening of symptoms or any acute distress. - Differential Diagnosis GERD, food poisoning, gastritis Critical Care Time: No Critical care attestation.: If time is entered above; I have spent that time in minutes in the direct care of this critically ill patient, excluding procedure time. ED Disposition Clinical Impression: Nausea and vomiting Qualifiers: Vomiting type: unspecified Vomiting Intractability: non-intractable Qualified Code(s): R11.2 - Nausea with vomiting, unspecified Abdominal pain Qualifiers: Abdominal location: epigastric Qualified Code(s): R10.13 - Epigastric pain Disposition: TO HOME OR SELFCARE Is pt being admited?: No Condition: Stable Instructions: Acute Nausea and Vomiting (ED), Abdominal Pain (ED) Additional Instructions: Please follow up with a primary care physician the next few days. Increase your oral rehydration. Return to the emergency Department with any worsening of your symptoms are any acute distress. Prescriptions: Omeprazole Magnesium [PriLOSEC Otc] 20 mg PO QDAY #20 tablet. Ondansetron [Zofran Odt] 4 mg PO Q8H PRN #10 tab.rapdis PRN Reason: Nausea Referrals: PRIMARY CARE, [Primary Care Provider] - 3-5 Days Time of Disposition: 11:09
--- NOTE | 2017-07-09 10:31 | XRay Report ---
ABDOMEN TWO VIEWS: 07/09/17 10:00:00 CLINICAL: Abdominal pain. COMPARISON:None. FINDINGS: Supine upright views demonstrate a normal bowel gas pattern. A large volume of stool in right colon and hepatic flexure. No distended bowel and no air-fluid levels. No pneumoperitoneum. No mass or suspicious calcifications. The bones and soft tissues are normal. IMPRESSION: Negative abdomen.
[2017-07-09 11:59] VITALS: BP 139/84
== END 2017-07-09 11:23 | disposition home or self-care (01) ==
LOC: ED 18:53
DX: R11.2 Nausea with vomiting, unspecified (principal); R10.13 Epigastric pain
CPT/HCPCS: 36415; 74019; 80053; 81001; 83690; 85025; 96372; 99284; J1885; J2405